=== PATIENT | female | born 1955 | race Caucasian/White ===

== ENCOUNTER → 2023-08-27 13:33 | Outpatient (REF) | payer MEDICARE, OTHER, SELFPAY | LOC: HWRAD 13:33 | PROVIDERS: ATTENDING PHYSICIAN Internal Medicine Critical Care Medicine; FAMILY PHYSICIAN Family Medicine | DX: J47.9 Bronchiectasis, uncomplicated (principal); R91.1 Solitary pulmonary nodule | CPT/HCPCS: 71250 ==

== ENCOUNTER 2023-09-11 06:54 | Day surgery (SDC) | payer MEDICARE, OTHER, SELFPAY ==
[2023-09-10 20:03] VITALS: BMI 20.9
[2023-09-10 20:28] VITALS: BP 165/79
[2023-09-10 20:55] LABS: % Basophils 0.6 % (0-2); % Eosinophils 1.2 % (0-6); % Immature Granulocytes 0.4 % (0-0.5); % Monocytes 5.5 % (1.7-9.3); % Neutrophils 64.3 % (42.2-75.2); Absolute Basophils 0.1 10^3/uL (0-0.2); Absolute Eosinophils 0.1 10^3/uL (0-0.7); Absolute Lymphocytes 3.1 10^3/uL (1.2-3.4); Absolute Monocytes 0.6 10^3/uL (0.1-0.6); Hematocrit 34.3 % (37.0-47.0); Hemoglobin 11.8 g/dL (12.0-16.0); Mean Corp Hgb Conc. 34.4 g/dL (33.0-37.0); Mean Corpuscular Hgb 30.8 pg (27.0-31.0); Mean Corpuscular Volume 89.6 fL (81.0-99.0); Mean Platelet Volume 8.7 fL (7.4-10.4); Nucleated Red Blood Cells % 0 %; Platelet Count 292 10^3/uL (130-400); Red Blood Cell Count 3.83 10^6/uL (4.20-5.40); Red Cell Dist. Width 13.8 % (11.5-14.5); White Blood Cell Count 10.9 10^3/uL (4.8-10.8)
[2023-09-10 21:26] LABS: ALT (SGPT) 16 U/L (0-35); AST (SGOT) 22 U/L (14-36); Albumin 4.6 g/dl (3.5-5.0); Alkaline Phosphatase 71 U/L (38-126); Blood Urea Nitrogen 18 mg/dl (7-17); Calcium 9.3 mg/dl (8.4-10.2); Carbon Dioxide 24 mmol/L (22-30); Chloride 102 mmol/L (98-107); Glucose 115 mg/dl (70-99); Potassium 4.1 mmol/L (3.5-5.1); Sodium 138 mmol/L (135-145); Total Bilirubin 0.4 mg/dl (0.2-1.3); Total Protein 7.3 g/dl (6.3-8.2); eGFR > 60.00
[2023-09-11] VITALS (12 sets, daily range): BP systolic 121–150; BP diastolic 59–90
--- NOTE | 2023-09-11 01:02 | ED.GENMED ---
History of Present Illness
General
Chief Complaint: Esophageal Problem
Source: patient
Exam Limitations: none
Time Seen by Provider: 09/11/23 00:46
Travel History
Have you had any contact with someone who has COVID-19?: No
Do you have any symptoms of coronavirus? Fever > 100 degrees, chills, cough, shortness of breath, sore throat, loss of taste or smell, muscle aches, or headache?: No
History of Present Illness
History of Present Illness:
This is a 68 year old female that comes in with c/o chicken stuck in her throat. State that this has happened to her in the past with steak. State that she has had the esophagus stretched in the past. States that tonight the chicken got stuck at 6pm
and she has not been able to swallow her own saliva or any liquid. States that she has vomited and has a headache. Denies any fever, chills, chest pain, SOB, abd pain, nausea, diarrhea, dizziness, urinary burning.
Past History
Past History
ED Past Medical History: Arrthythmia (PVC's, Denies any history of SVT), Asthma, GERD, HTN, Hypercholesterolemia, Hypothyroidism, Psychiatric (anxiety) and Other (UTI's, migraine BARKER's, and strictures in the urethra. Vertigo, Hiatal hernia)
ED Past Surgical History: Gynecological (right oophorectomy), Urological (Urethral dilation) and Other (rhinoplasty)
Social History
Tobacco: Non-smoker
Alcohol: Occasional
Personal:
Living: with family
Employment: Employed
Family History
Family History: Hypertension
Review of Systems
Review of Systems
All Other Systems: ROS reviewed and negative except as documented in HPI and ROS
Constitutional: Reports no symptoms; Denies fever or chills
EENT: Reports other (Chicken stuck in the esophagus)
Respiratory: Reports no symptoms; Denies cough or trouble breathing
Cardiac: Reports no symptoms; Denies chest pain
ABD/GI: Reports vomiting; Denies abdominal pain, nausea or diarrhea
: Reports no symptoms; Denies dysuria, frequency or urgency
Musculoskeletal: Reports no symptoms
Skin: Reports no symptoms
Neurological: Reports headache; Denies dizzy
Psychiatric: Reports no symptoms
Phy Exam
General Physical Exam
General Presentation: no apparent distress
General age: appears stated age
General Skin: warm and dry
General Habitus: normal
General Mental: alert
General Hydration: appears well hydrated
ENT Exam
ENT Exam: TM's normal, pharynx normal, neck supple and other (Unable to swallow her own saliva)
Eye Exam
Eye Exam: EOMI
Cardiovascular Exam
Cardiovascular Exam: regular rate/rhythm, no edema, no murmur and normal peripheral pulses
Pulmonary Exam
Pulmonary Exam: lungs clear, no respiratory distress, no rales, chest non tender, no crackles, no rhonchi, no wheezing and no cough
Gastrointestinal Exam
Gastrointestinal Exam: normal bowel sounds, non tender, soft, no organomegaly, no pulsatile mass and non distended
Musculoskeletal Exam
Musculoskeletal Exam: full ROM and no edema
Skin Exam
Skin Exam: normal color, warm/dry, no rash and no petechia
Psychiatric Exam
Psychiatric Exam: normal mood/affect
Course
Orders/Labs/Results
Orders:
Orders
09/10/23 20:46
CMP [Comprehensive Metabolic Panel] Urgent
Complete Blood Count/With Diff Urgent
09/11/23 01:01
Glucagon [GlucaGen] 1 mg IV NOW STA
09/11/23 01:44
Glucagon [GlucaGen] 1 mg IV NOW STA
09/11/23 07:01
Dexamethasone Sod Phosphate [Decadron] 20 mg .ROUTE .STK-MED ONE
Fentanyl Citrate/Pf [Sublimaze] 100 mcg .ROUTE .STK-MED ONE
Lidocaine 2% Mpf [Xylocaine Mpf 2%] 100 mg .ROUTE .STK-MED ONE
Ondansetron Injectable [Zofran] 4 mg .ROUTE .STK-MED ONE
Propofol [Diprivan] 20 ml .ROUTE .STK-MED
Rocuronium Ronald [Rocuronium] 50 mg .ROUTE .STK-MED ONE
Sugammadex Sodium [Bridion] 200 mg .ROUTE .STK-MED ONE
09/11/23 07:36
Ondansetron Injectable [Zofran] 4 mg .ROUTE .STK-MED ONE
09/11/23 08:00
Ipratropium/Albuterol Sulfate [Duoneb] 3 ml INH R NOW ONE
Meperidine [Demerol] 12.5 mg IV PACU-Q5MPRN PRN
Normosol (Mult Electrolytes) [Normosol-R] 1,000 ml IV PER PROTOCOL
Ondansetron Injectable [Zofran] 4 mg IV PACU-ONCEPRN PRN
Notify MD As Directed
Notify physician if: for SDS patients with known or suspected sleep obstructive sleep apnea, monitor in the
PACU.
Notify MD for any apneic/desaturation episodes
O2 Therapy [RESP] Urgent
Titrate/Wean O2 to maintain O2 sat greater than (%): 95
Special Instructions: -Provide supplemental oxygen to achieve O2 sat of 95% or greater.
-After 15 min, may wean O2 and discontinue if patient is able to maintain O2 sat of 95%
or greater during recovery period.
If patient is a discharge home, without oxygen therapy, notify anestheiologist if
unable to maintain O2 SAT of 95% or greater on room air for MD clearance.
Abnormal Lab Results
09/10/23
20:46
WBC 10.9 H 10^3/uL
(4.8-10.8)
RBC 3.83 L 10^6/uL
(4.20-5.40)
Hgb 11.8 L g/dL
(12.0-16.0)
Hct 34.3 L %
(37.0-47.0)
Absolute Neuts (auto) 7.0 H 10^3/uL
(1.4-6.5)
BUN 18 H mg/dl
(7-17)
Glucose 115 H mg/dl
(70-99)
09/10/23 20:46
09/10/23 20:46
H/H slightly low. Very slight Dehydration. glucose nonfasting.
Vital Signs
Initial and Last Documented VS:
Initial Vital Signs
Temp Pulse Resp BP Pulse Ox
98.3 F 85 20 165/79 99
09/10/23 20:28 09/10/23 20:28 09/10/23 20:28 09/10/23 20:28 09/10/23 20:28
Last Documented Vital Signs
Temp Pulse Resp BP Pulse Ox
99.5 F 82 18 125/68 95
09/11/23 09:00 09/11/23 09:50 09/11/23 09:50 09/11/23 09:50 09/11/23 09:50
MDM/Problems Addressed
Differential Diagnosis Includes:
Esophageal food bolus, Esophageal strictures
MDM/Problems Addressed:
This is a 68 year old female that comes in with c/o chicken stuck in her throat. States that she can't get any liquid down and not even her own saliva. States that she has also vomited. States that this has happened in the past with Steak.
Will get labs and give Glucagon and recheck. Explained that if this doesn't allow the chicken to go down the GI specialist will be called.
Back into see patient. Attempted to drink some water but was unable to keep this down. Feels like the chicken is still stuck. Will notify GI Specialist.
Spoke with GI and they would like a second Dose of Glucagon given at this time.
Into see patient. Attempted to drink water again with no success. GI specialist notified. He will be into see patient.
Chronic conditions affecting care:
Esophageal stricture
Acute Exacerbation and/or Progression of Chronic Illness:
Esophageal stricture
*Pulse Oximetry
Patient hypoxic: no
*EKG
Interpreted by ED Provider?: NA
Rate: EKG- N/A
*Bridge Mechanic Interpretation
Rate: Bridge Mechanic- N/A
*Critical Care Note
Total Time (30-74mins, 75-104mins- exclusive of procedures): Not Applicable
ED Attending Note
-
Portions of this chart may have been created with voice recognition software.� Occasional wrong word or��sound alike� substitutions may have occurred due to the inherent limitations of voice recognition software.
Discharge Plan
Departure
Patient Disposition: GI LAB
Date of Disposition: 09/11/23
Time of Disposition: 02:30
Presentation/result/management discussed w/ accepting MD/DO: DR. Solano
Patient with high blood pressure during this ER visit?: No
Condition: Good
Covid-19: Not Applicable
Discharge Problem:
Food impaction of esophagus
Interventions
Interventions:
*Risk Screen - Suicide Last Done: 09/10/23 20:28
*General Assessment Last Done: 09/10/23 20:28
*Neglect/Abuse Screening Last Done: 09/10/23 20:28
ED- Fall Risk Assessment Last Done: 09/11/23 01:15
*ED COVID-19 Vaccine History Last Done: 09/11/23 06:30
*Nursing Disposition Last Done: 09/11/23 06:30
YV-Nanlxk-Hodajlugxa Assessment Last Done: 09/11/23 01:14
ED-EENT Assessment Last Done: 09/11/23 01:14
Discharge Date and Time
Discharge Date/Time: 09/11/23 06:31
[2023-09-11] MEDS: GlucaGen 1 MG IV ×2 (01:07→01:49)
--- NOTE | 2023-09-11 04:59 | CON.GI ---
Consultation
-
Date/Time Consultation Requested: 09/11/23 at 2am
Date/Time Consultation Performed: 09/11/23 at 4:30am
Requesting Provider: Paulina
Performing Provider: Xiomara
Reason for Consultation: food impaction
Medical History
Chief Complaint / HPI
Chief Complaint: food impaction
History of Present Illness:
Pt is a 68 y/o female with a hx of gerd, hiatal hernia who ate [employer] rotisserie chicken last night and had acute dysphagia. vomited a small piece but then felt rest stuck. Initially spitting saliva, now improved but can't drink water w/o
regurgitation. No Chest pain or SOB. She does take omeprazole 20mg once a day. She cut it back since last year because of diarrhea. She follows at [facility] and has had several EGDs and colonoscopies in the past. She did have one dilation but
that was over 20 years ago.
Past Medical History
Past Medical History: Asthma, GERD, HTN and Hypercholesterolemia
Past Surgical History: Gynecological (oopherectomy)
Social History
Tobacco: Non-Smoker
Alcohol: Occasional
Family History
Family History: Reviewed & Not Pertinent
Allergies / Home Medications
Allergy/AdvReac Type Severity Reaction Status Date / Time
nitrofurantoin Allergy Hives Verified 09/10/23 20:28
[From Macrobid]
Sulfa (Sulfonamide Allergy Swelling Verified 09/10/23 20:28
Antibiotics)
�Medication �Instructions �Recorded
acetaminophen 300 mg-codeine 30 mg 1 - 2 tab PO Q6HPRN PRN 11/10/12
tablet headache/pain
alprazolam 1 mg tablet 1 mg PO HSPRN PRN sleep 11/10/12
esomeprazole magnesium 40 mg 40 mg PO DAILY 11/10/12
capsule,delayed release (Nexium)
levothyroxine 75 mcg tablet 75 mcg PO DAILY AT 0700 11/10/12
rosuvastatin 5 mg tablet 2.5 mg PO DAILY 11/10/12
dicyclomine 10 mg capsule 10 mg PO QIDPRN PRN spasm, pain 01/05/16
#10 caps
levofloxacin 500 mg tablet 500 mg PO DAILY 5 days 01/05/16
(Levaquin)
Review of Systems
-
All other systems: A 12 pt ROS was Negative except as stated above in HPI
Vital Signs
Temp Pulse Resp BP Pulse Ox
98.3 F 86 14 128/68 97
09/10/23 20:28 09/11/23 03:01 09/11/23 03:01 09/11/23 03:01 09/11/23 03:01
Physical Exam
Exam
General: No Apparent Distress
HEENT: Anicteric
Cardiac: S1/S2
GI: Soft and Non Tender
Skin: Warm
Neuro: Awake and Alert
Psych: Calm
Results
WBC 10.9 10^3/uL (4.8-10.8) H 09/10/23 20:46
Hgb 11.8 g/dL (12.0-16.0) L 09/10/23 20:46
Hct 34.3 % (37.0-47.0) L 09/10/23 20:46
MCV 89.6 fL (81.0-99.0) 09/10/23 20:46
Plt Count 292 10^3/uL (130-400) 09/10/23 20:46
Absolute Neuts (auto) 7.0 10^3/uL (1.4-6.5) H 09/10/23 20:46
Sodium 138 mmol/L (135-145) 09/10/23 20:46
Potassium 4.1 mmol/L (3.5-5.1) 09/10/23 20:46
Chloride 102 mmol/L (98-107) 09/10/23 20:46
Carbon Dioxide 24 mmol/L (22-30) 09/10/23 20:46
BUN 18 mg/dl (7-17) H 09/10/23 20:46
Creatinine 0.7 mg/dL (0.6-1.0) 09/10/23 20:46
Calcium 9.3 mg/dl (8.4-10.2) 09/10/23 20:46
Total Bilirubin 0.4 mg/dl (0.2-1.3) 09/10/23 20:46
AST 22 U/L (14-36) 09/10/23 20:46
ALT 16 U/L (0-35) 09/10/23 20:46
Alkaline Phosphatase 71 U/L (38-126) 09/10/23 20:46
Assessment / Plan
-
Pt is a 68 y/o female with a hx of gerd, hiatal hernia, esophageal dilation in past. She has a food impaction with chicken. She is not on blood thinners and electrolytes fine.
- keep NPO
- already received glucagon x2 w/o full improvement
- will need egd with intubation for food removal, discussed risks of perforation, bleeding.
d/w pt and
-
-
Thank you for consultation and allowing me to participate in the patient's care. Please call the manager application development GI physician during the after hours with any questions or concerns.
[2023-09-11] MEDS: ZOFRAN 4 MG IV (07:40)
[2023-09-11] MEDS: DUONEB 3 ML INH (08:11)
== END 2023-09-11 09:56 | disposition home or self-care (01) ==
LOC: GI 06:54
PROVIDERS: Student in an Organized Health Care Education/Training Program; ATTENDING PHYSICIAN Internal Medicine; EMERGENCY PHYSICIAN Emergency Medicine; FAMILY PHYSICIAN Family Medicine
DX: T18.120A Food in esophagus causing compression of trachea, initial encounter (principal); W44.F3XA Food entering into or through a natural orifice, initial encounter; K22.89 Other specified disease of esophagus
CPT/HCPCS: 43247; 80053; 85025; 94640; 96374; 96376; 99285; J1610

== ENCOUNTER → 2023-10-29 07:44 | Outpatient (REF) | payer MEDICARE, OTHER, SELFPAY ==
[2023-10-29 09:34] LABS: % Basophils 0.6 % (0-2); % Eosinophils 1.2 % (0-6); % Immature Granulocytes 0.3 % (0-0.5); % Lymphocytes 37.1 % (20.5-51.1); % Monocytes 7.3 % (1.7-9.3); % Neutrophils 53.5 % (42.2-75.2); ALT (SGPT) 31 U/L (0-35); AST (SGOT) 37 U/L (14-36); Absolute Basophils 0.1 10^3/uL (0-0.2); Absolute Eosinophils 0.1 10^3/uL (0-0.7); Absolute Lymphocytes 3.4 10^3/uL (1.2-3.4); Absolute Monocytes 0.7 10^3/uL (0.1-0.6); Absolute Neutrophils 4.9 10^3/uL (1.4-6.5); Albumin 4.7 g/dl (3.5-5.0); Alkaline Phosphatase 71 U/L (38-126); Blood Urea Nitrogen 17 mg/dl (7-17); Calcium 9.7 mg/dl (8.4-10.2); Carbon Dioxide 28 mmol/L (22-30); Chloride 98 mmol/L (98-107); Glucose 105 mg/dl (70-99); Hematocrit 36.9 % (37.0-47.0); Hemoglobin 12.5 g/dL (12.0-16.0); Mean Corp Hgb Conc. 33.9 g/dL (33.0-37.0); Mean Corpuscular Volume 91.6 fL (81.0-99.0); Mean Platelet Volume 8.7 fL (7.4-10.4); Nucleated Red Blood Cells % 0 %; Platelet Count 329 10^3/uL (130-400); Potassium 4.1 mmol/L (3.5-5.1); Red Blood Cell Count 4.03 10^6/uL (4.20-5.40); Red Cell Dist. Width 13.8 % (11.5-14.5); Sodium 136 mmol/L (135-145); Total Bilirubin 0.4 mg/dl (0.2-1.3); Total Protein 7.2 g/dl (6.3-8.2); White Blood Cell Count 9.3 10^3/uL (4.8-10.8); eGFR > 60.00
[2023-10-29 10:04] LABS: TSH 0.54 uIU/ml (0.47-4.68)
[2023-10-29 10:48] LABS: Glycohemoglobin (HgbA1c) 6.1 % (4.0-5.6)
== END ==
LOC: HWRAD 07:44
PROVIDERS: ATTENDING PHYSICIAN Family Medicine
DX: R10.84 Generalized abdominal pain (principal); M54.2 Cervicalgia; R73.03 Prediabetes; E03.9 Hypothyroidism, unspecified; K21.9 Gastro-esophageal reflux disease without esophagitis
CPT/HCPCS: 36415; 72050; 76700; 80053; 83036; 84443; 85025

== ENCOUNTER → 2024-01-21 09:18 | Outpatient (REF) | payer MEDICARE, OTHER, SELFPAY | LOC: HWRAD 09:18 | PROVIDERS: ATTENDING PHYSICIAN Internal Medicine Rheumatology; FAMILY PHYSICIAN Family Medicine | DX: M81.0 Age-related osteoporosis without current pathological fracture (principal) | CPT/HCPCS: 77080 ==

== ENCOUNTER → 2024-03-26 10:22 | Outpatient (REF) | payer MEDICARE, OTHER, SELFPAY | LOC: HWWDC 10:22 | PROVIDERS: ATTENDING PHYSICIAN Obstetrics & Gynecology Gynecology; FAMILY PHYSICIAN Family Medicine | DX: Z12.31 Encounter for screening mammogram for malignant neoplasm of breast (principal) | CPT/HCPCS: 77063; 77067 ==

== ENCOUNTER 2024-08-23 20:55 | Emergency (ER) | payer MEDICARE, OTHER, SELFPAY ==
[2024-08-23 20:57] VITALS: BP 165/83
[2024-08-23] MEDS: ZOFRAN ODT (ORALLY DISINTEGRATING) 4 MG PO (22:32)
--- NOTE | 2024-08-23 23:37 | ED.GENMED ---
History of Present Illness
General
Chief Complaint: Skin Problem
Source: patient and spouse
Time Seen by Provider: 08/23/24 23:24
History of Present Illness
History of Present Illness:
This patient is a 69-year-old female who was feeling perfectly well all day today. Her and her had an active day going to [employer] etc. She does not recall any insect spider or tick bites. At around 730, she noticed a 'red spot' at
the right anterior upper chest area. This is nontender, not raised, not bleeding. This alarmed her, which prompted her visit here. Since about 9 PM, patient notes that she is having intractable nonbloody vomiting. She does not feel nauseous and
denies abdominal pain, chest pain, shortness of breath, fever, chills, foreign body sensation. She is tolerating fluids without difficulty. She has had a history of an esophageal food impaction in the past and this does not feel like that. She
denies joint pain, rash otherwise, or other complaints.
Past History
Past History
ED Past Medical History: Arrthythmia (PVC's, Denies any history of SVT), Asthma, GERD, HTN, Hypercholesterolemia, Hypothyroidism, Psychiatric (anxiety) and Other (UTI's, migraine BARKER's, and strictures in the urethra. Vertigo, Hiatal hernia)
ED Past Surgical History: Gynecological (right oophorectomy), Urological (Urethral dilation) and Other (rhinoplasty)
Social History
Tobacco: Non-smoker
Alcohol: Occasional
Drug: None
Personal:
Living: with family
Employment: Employed
Family History
Family History: Hypertension
Phy Exam
Physical Exam
Physical Exam:
GENERAL: Alert , in no apparent distress
EYE: pupils equal and reactive
NECK: Supple, no significant adenopathy.
ENT: o/p clr, mmm.
CARDIAC: Regular rate and rhythm .
LUNGS: Clear breath sounds bilaterally, no acute respiratory distress, no wheezes/rales/rhonchi
ABDOMEN: Soft, without focal tenderness, no r/g
NEUROLOGICAL: Alert and oriented, no focal neuro deficits
SKIN: Warm and dry, skin intact. There is an oval shaped area at R clavicle area, ?bruise (red/purple in color, ? purpura appearing, no drainage/bleeding/ECM like pattern/break in skin)
MUSCULOSKELETAL: No edema, well perfused.
PSYCH: Normal and appropriate interaction.
Course
Orders/Labs/Results
Orders:
Orders
08/23/24 22:26
Ondansetron Orally Disint [Zofran Odt (Orally Disintegrating)] 4 mg .ROUTE .STK-MED ONE
08/23/24 22:31
Ondansetron Orally Disint [Zofran Odt (Orally Disintegrating)] 4 mg .ROUTE .STK-MED ONE
Ondansetron Orally Disint [Zofran Odt (Orally Disintegrating)] 4 mg PO NOW STA
08/23/24 23:34
Cardiac Monitoring- Treatment ONCE
0.9% Sodium Chloride 1000 ml [Nss] 1,000 ml IV BOLUS
Ondansetron Injectable [Zofran] 4 mg IV NOW STA
08/23/24 23:41
Complete Blood Count/No Diff Urgent
Comprehensive Metabolic Panel Urgent
ESR [Erythrocyte Sed Rate] Urgent
Lipase Urgent
Lyme Progressive Urgent
PTT Urgent
Prothrombin Time Urgent
08/23/24 23:52
CRP [C-Reactive Protein] Urgent
08/24/24 00:46
EKG [Electrocardiogram (*1)] Urgent
Reason for Study: Other
Other Reason for Exam: nausea/vomiting
EKG- Treatment ONCE
Abnormal Lab Results
08/23/24
23:41
WBC 13.2 H 10^3/uL
(4.8-10.8)
RBC 3.80 L 10^6/uL
(4.20-5.40)
Hgb 11.9 L g/dL
(12.0-16.0)
Hct 33.8 L %
(37.0-47.0)
MCH 31.3 H pg
(27.0-31.0)
Sodium 127 L mmol/L
(135-145)
Chloride 91 L mmol/L
(98-107)
Creatinine 0.5 L mg/dL
(0.6-1.0)
08/23/24 23:41
08/23/24 23:41
Vital Signs
Initial and Last Documented VS:
Initial Vital Signs
Temp Pulse Resp BP Pulse Ox
97.5 F 70 16 165/83 100
08/23/24 20:57 08/23/24 20:57 08/23/24 20:57 08/23/24 20:57 08/23/24 20:57
Last Documented Vital Signs
Temp Pulse Resp BP Pulse Ox
97.5 F 72 13 151/87 98
08/23/24 20:57 08/24/24 01:00 08/24/24 01:00 08/24/24 01:00 08/24/24 01:00
*Critical Care Note
Total Time (30-74mins, 75-104mins- exclusive of procedures): Not Applicable
Update Note
Update Note:
Patient presents to the Emergency Department with red spot on chest and vomiting
Number and Complexity of Problems Addressed at the Encounter
� Chronic conditions affecting care:
� Acute Exacerbation and/or Progression of Chronic Illness:
� Differential Diagnosis includes: But not limited to vasculitis, esophageal food impaction, pancreatitis, electrolyte disorder, Lyme disease, etc. etc. etc.
Amount and/or Complexity of Data to be Reviewed and Analyzed
� I performed an independent evaluation of and my interpretation is:
EKG:read by me, nsr, no ischemia
CT:
Xrays:
Laboratory Studies: Mild nonspecific leukocytosis, hyponatremia, normal inflammatory markers, normal coags
Other:
� Review of other/old records reveals:
� Clinical information was obtained by an independent historian: who is bedside
� Prescriptions/Medications Considered but not given:
� Further testing considered but not performed:
Risk of Complications and/or Morbidity or Mortality of Patient Management
� Social determinants of health affecting care:
� Discussion with other providers (PCP, Hospitalists, Consultants, etc):
� Escalation of care including admission/observation vs risk of discharge considered: Lesion on patient's upper chest suggestive of 1 purpura, do not suspect serious etiologies such as infection, vasculitis, etc. given
unremarkable workup, well appearance, etc. Patient aware that Lyme test is pending and she will follow-up on this. Patient's vomiting has resolved, she feels better and is eager to go home. Long discussion with patient regarding her hyponatremia.
She suffers from Sjogren's and admits to copious water intake. I recommended that she limit water intake and have her sodium checked on Sunday with her PCP which she will do. She does not have serious symptoms of hyponatremia that would warrant
3% or admission at this time. Patient does not have abdominal pain or tenderness, fever, etc.
ED Attending Note
-
Portions of this chart may have been created with voice recognition software.� Occasional wrong word or��sound alike� substitutions may have occurred due to the inherent limitations of voice recognition software.
Discharge Plan
Departure
Patient Disposition: Home (Routine Discharge)
Date of Disposition: 08/24/24
Time of Disposition: 01:10
Patient with high blood pressure during this ER visit?: Yes
Condition: Good
Discharge Problem:
Vomiting
Instructions: Skin Rash (DC), Hyponatremia, BLOOD PRESSURE, Acute Nausea and Vomiting
Prescriptions:
No Action
alprazolam 1 MG tablet
1 mg PO HSPRN PRN (Reason: sleep)
acetaminophen-codeine 1 TABLET tablet
1 - 2 tab PO Q6HPRN PRN (Reason: headache/pain)
levothyroxine 75 MCG tablet
75 mcg PO DAILY AT 0700
esomeprazole magnesium [Nexium] 40 MG capsule,delayed release(DR/EC)
40 mg PO DAILY
rosuvastatin 5 MG tablet
2.5 mg PO DAILY
dicyclomine 10 MG capsule
10 mg PO QIDPRN PRN (Reason: spasm, pain) Qty: 10 0RF
levofloxacin [Levaquin] 500 MG tablet
500 mg PO DAILY 5 Days 0RF
Referrals:
Kuldeep Eli MD [Family Provider] - 08/25/24
Activity Restrictions/Additional Instructions:
IS VERY IMPORTANT THAT YOU CONTACT YOUR PRIMARY CARE DOCTOR ON SUNDAY TO ARRANGE TO HAVE A REASSESSMENT AND YOUR SODIUM RECHECKED. YOUR SODIUM WAS NOTED TO BE LOWER THAN NORMAL TODAY, AND YOU SHOULD RESTRICT THE AMOUNT OF WATER/FLUID THAT YOU TAKE
IN. IF YOU DEVELOP DIZZINESS, RECURRENT VOMITING, ABDOMINAL PAIN, FEVER, CHILLS, NUMBNESS, OR OTHER WORRISOME SIGNS, PLEASE RETURN TO THE EMERGENCY DEPARTMENT IMMEDIATELY
Interventions
Interventions:
*Risk Screen - Suicide Last Done: 08/23/24 20:57
*General Assessment Last Done: 08/23/24 20:57
*Neglect/Abuse Screening Last Done: 08/23/24 20:57
*ED- Fall Risk Assessment Last Done: 08/23/24 20:57
*ED COVID-19 Vaccine History Last Done: 08/23/24 20:57
*Nursing Disposition Last Done: 08/24/24 01:15
ED-Skin Assessment Last Done: 08/23/24 22:11
Discharge Date and Time
Discharge Date/Time: 08/24/24 01:22
Print Language: VIET[place]ESE
[2024-08-23] MEDS: ZOFRAN 4 MG IV (23:41)
[2024-08-23 23:48] VITALS: BP 146/68
[2024-08-23] MEDS: NSS 1000 IV (23:49)
[2024-08-24] VITALS: BP 156/76
[2024-08-24 00:01] LABS: Hematocrit 33.8 % (37.0-47.0); Hemoglobin 11.9 g/dL (12.0-16.0); Mean Corp Hgb Conc. 35.2 g/dL (33.0-37.0); Mean Corpuscular Hgb 31.3 pg (27.0-31.0); Mean Corpuscular Volume 88.9 fL (81.0-99.0); Mean Platelet Volume 8.5 fL (7.4-10.4); Platelet Count 285 10^3/uL (130-400); Red Cell Dist. Width 12.9 % (11.5-14.5); White Blood Cell Count 13.2 10^3/uL (4.8-10.8)
[2024-08-24 00:17] LABS: ALT (SGPT) 20 U/L (0-35); AST (SGOT) 24 U/L (14-36); Albumin 4.7 g/dl (3.5-5.0); Alkaline Phosphatase 64 U/L (38-126); Blood Urea Nitrogen 10 mg/dl (7-17); Calcium 9.4 mg/dl (8.4-10.2); Carbon Dioxide 29 mmol/L (22-30); Chloride 91 mmol/L (98-107); Glucose 99 mg/dl (70-99); Lipase 134 U/L (23-300); Potassium 3.6 mmol/L (3.5-5.1); Sodium 127 mmol/L (135-145); Total Bilirubin 0.7 mg/dl (0.2-1.3); Total Protein 7.2 g/dl (6.3-8.2); eGFR > 60.00
[2024-08-24 00:21] LABS: INR 1.01; PT 13.6 Sec (11.4-14.6)
[2024-08-24 00:22] LABS: APTT 30.8 Sec (23.4-35.0)
[2024-08-24 00:30] LABS: Erythrocyte Sed Rate 17 mm/hour (0-20)
[2024-08-24 01:00] VITALS: BP 151/87
[2024-08-25 16:14] LABS: Lyme Antibody Screen, EIA Negative (Negative)
== END 2024-08-24 01:22 | disposition home or self-care (01) ==
LOC: EMR 20:55
PROVIDERS: EMERGENCY PHYSICIAN Emergency Medicine; FAMILY PHYSICIAN Family Medicine
DX: R11.10 Vomiting, unspecified (principal); L98.8 Other specified disorders of the skin and subcutaneous tissue; M35.00 Sjogren syndrome, unspecified; E87.1 Hypo-osmolality and hyponatremia; K21.9 Gastro-esophageal reflux disease without esophagitis; I10 Essential (primary) hypertension; E03.9 Hypothyroidism, unspecified; G43.909 Migraine, unspecified, not intractable, without status migrainosus; F41.9 Anxiety disorder, unspecified; J45.909 Unspecified asthma, uncomplicated; Z87.440 Personal history of urinary (tract) infections; Z88.2 Allergy status to sulfonamides; Z88.8 Allergy status to other drugs, medicaments and biological substances
CPT/HCPCS: 99284; 96374; 96361; 80053; 83690; 85027; 85610; 85652; 85730; 86140; 86618; 93005

== ENCOUNTER → 2024-09-16 09:54 | Outpatient (REF) | payer MEDICARE, OTHER, SELFPAY | LOC: RST 09:54 | PROVIDERS: ATTENDING PHYSICIAN Internal Medicine Rheumatology; FAMILY PHYSICIAN Family Medicine | DX: K21.9 Gastro-esophageal reflux disease without esophagitis (principal); M35.00 Sjogren syndrome, unspecified; M81.0 Age-related osteoporosis without current pathological fracture; R13.10 Dysphagia, unspecified | CPT/HCPCS: 74230; 92611 ==

== ENCOUNTER 2024-12-01 06:28 | Day surgery (SDC) | payer MEDICARE, OTHER, SELFPAY | END 2024-12-01 11:35 | disposition home or self-care (01) | LOC: GI 06:28 | PROVIDERS: ATTENDING PHYSICIAN Internal Medicine | DX: K22.89 Other specified disease of esophagus (principal); K29.70 Gastritis, unspecified, without bleeding; R13.10 Dysphagia, unspecified; K22.2 Esophageal obstruction; K22.70 Barrett's esophagus without dysplasia; K20.90 Esophagitis, unspecified without bleeding | CPT/HCPCS: 43249; 43239; 88305; 88342 ==